=== PATIENT | female | born 2000 | race Caucasian/White ===

== ENCOUNTER 2023-01-21 09:40 | Outpatient (AMB) | payer OTHER, SELFPAY ==
[2023-01-21 12:11] VITALS: BP 110/66; PULSE 72; TEMP 36.7; O2SAT 98; BMI 28.2
--- NOTE | 2023-01-21 12:11 | AM.OFFWIN_ITS ---
Intake Vital Signs 01/21/23 12:11 Height 5 ft 1 in Weight 149 lb 6 oz BMI 28.2 BP 110/66 Blood Pressure Location Lt brachial Position Sitting Pulse 72 Pulse Source Pulse Oximeter Temp 98.1 F Temp Source Temporal Artery Scan Pulse Oximetry (%) 98 Intake Visit Reasons: EP Swollen tonsils/pain Intake Note: pt is here for c/o swollen tonsils with pain Patient Tobacco Use Status: Never used Tobacco Allergies No Known Allergies Allergy (Verified 01/21/23 12:11) Do you need a note to return to daycare/school/sports/work: Yes HPI EP Swollen tonsils/pain HPI Details Patient is a 22-year-old female comes to the walk-in clinic with sore throat for the last few days. Home COVID testing was negative. Mild postnasal drip and rare cough. No fever chills, nausea vomiting or diarrhea, headache or dizziness, weakness, myalgias or malaise, or other significant associated symptoms. No underlying immuno compromising issues PFSH Social History Patient Tobacco Use Status: Never used Tobacco Review of Systems Const All systems reviewed & are unremarkable except as noted in HPI and below Physical Exam Vital Signs: Last Vital Signs Temp 98.1 F 01/21/23 12:11 Pulse 72 01/21/23 12:11 BP 110/66 01/21/23 12:11 Pulse Ox 98 01/21/23 12:11 BMI result Body Mass Index 28.2 Const General: cooperative, no acute distress, alert, awake, Physically active and well groomed; No anxious, diaphoretic, intoxicated appearing or poor hygiene Nutritional Appearance: average body habitus Orientation/consciousness: oriented to person Limitations: no limitations HEENT Head: Yes normal to inspection, Yes normocephalic and Yes atraumatic Ears: hearing grossly normal bilaterally, external ears normal, TM's normal bilaterally and EAC's normal General nose exam: Normal external nose present, Normal septum present, Abnormal mucous membranes and turbinates present and Nasal discharge present Face and sinus: Yes normal facial exam, Yes sinuses nontender and Yes face symmetric Mouth: Normal oral and palatal mucosa present, lip normal and tongue normal Throat: Yes uvula midline, Yes abnormal tonsil (erythematous and edematous jamarcus aterally), No peritonsillar mass, Yes posterior oropharynx abnormal (no Exudate or petechiae), Yes postnasal drainage, No uvular edema and No cobblestoning Eyes General: appearance normal, both eyes and all related structures Neck Neck: Yes normal visual inspection, Yes trachea midline, Yes supple and No anterior neck swelling Resp Effort & Inspection: normal respiratory effort, able to speak in complete sentences, no audible wheezes, no cough, no grunting, not labored, no nasal flaring, no retractions and symmetric chest movement Auscultation: clear to auscultation bilaterally, no crackles, no rales, no rhonchi, no wheezes, lung sounds not diminished and No rub present Cardio Palpation: normal PMI Rate: regular rate Rhythm: regular rhythm Heart sounds: S1 normal heart sound present and S2 normal heart sound present Skin Other: Good color, warm and dry Neuro General: oriented to person Psych Appearance: grossly normal Mental Status: mental status grossly normal Speech and movement: Normal speech and movement present Affect: normal affect Attitude: cooperative Thought process: Normal thought process present Insight: Good insight present (Psych) Judgement: Good judgement present (Psych) Results AMB Rapid Strep AMB Rapid Strep Negative Last Edit by Rodriguez Jones CMA on 01/21/23 12 :37 Results Reviewed Results Reviewed: Laboratory Last Values Strep Scn Rapid Clinic Negative 01/21/23 12:36 Negative rapid strep Assessment & Plan Assessment & Plan (1) Pharyngitis: Code(s): J02.9 - Acute pharyngitis, unspecified Plan Patient with acute bilateral tonsillitis, right more symptomatic than the left. Rapid strep test negative. Pending RSV COVID and flu testing, however her home rapid COVID test was negative. Due to the severity of her pain waking her from sleep, I wrote her for a course of naproxen to use as needed, and started her on Augmentin therapy. She knows to follow up if symptoms persist or worsen Orders: Orders AMB Rapid Strep Screen 01/21/23 Z13.9 - Encounter for screening, unspecified SARS-CoV2/FLU/RSV 01/21/23 R05.9 - Cough, unspecified Medications: New amoxicillin-pot clavulanate 875-125 mg 1 tab PO BID 14 tabs 0RF 7 days naproxen 500 mg PO BID PRN 28 tabs 0RF pain 14 days Coding Level of Care Code Est Pt Level 4 (90909) Diagnoses Pharyngitis J02.9
== END 2023-01-21 13:23 | disposition home or self-care (01) ==
LOC: HO.HMGWI 09:40
PROVIDERS: Visit Provider Physician Assistant Medical
DX: J02.9 Acute pharyngitis, unspecified (principal)
CPT/HCPCS: 87880; 99051; 99214

== ENCOUNTER 2023-01-21 13:42 | Outpatient (REF) | payer OTHER, SELFPAY ==
[2023-01-21 16:01] LABS: Influenza A PCR NEGATIVE (Negative); Influenza B PCR NEGATIVE (Negative); Resp Syncy Virus RNA Qual PCR NEGATIVE (Negative); SARS COV2 PCR INHOUSE NEGATIVE (Negative)
== END 2023-01-21 13:43 | disposition home or self-care (01) ==
LOC: HO.LAB 13:42
PROVIDERS: Visit Provider Physician Assistant Medical
DX: Z11.52 Encounter for screening for COVID-19 (principal); Z20.822 Contact with and (suspected) exposure to COVID-19; R05.9 Cough, unspecified
CPT/HCPCS: 0241U